=== PATIENT | female | born 1960 | race Caucasian/White ===

== ENCOUNTER → 2019-08-16 10:17 | Outpatient (BNVA) | payer MEDICARE, OTHER, SELFPAY | PROVIDERS: Family Provider Nurse Practitioner Family; Visit Provider Specialist | DX: M25.561 Pain in right knee (principal); M17.11 Unilateral primary osteoarthritis, right knee | CPT/HCPCS: 73560; 73565 ==

== ENCOUNTER 2020-02-03 11:31 | Outpatient (CLI) | payer MEDICARE, OTHER, SELFPAY ==
--- NOTE | 2020-02-03 11:43 | MM_ITS ---
WS: [id number] SCREENING DIGITAL MAMMOGRAM WITH CAD HISTORY: SCREENING COMPARISON: 11/24/2018, 01/25/2015 and 06/30/2012 Bilateral CC and MLO views submitted. Computer aided detection analyzed. Breast composition: There are scattered areas of fibroglandular density. Asymmetry seen on the LEFT CC projection measuring 8 mm in the central breast, just medial to the nip ple line. Not definitely seen on the lateral projection. There is an area of dense asymmetry in the 1 2:00 position LEFT breast which has been on the prior examinations. On the lateral projection there i s slightly more distortion. LEFT breast: Spot compression views (CC and MLO). True ML. Ultrasound to follow if abnormality ton tai. MM/[place] [id number] IMPRESSION: BI-RADS: 0-Incomplete: Need additional imaging evaluation FOLLOW UP: Need Additional Imaging
== END 2020-02-03 11:32 | disposition home or self-care (01) ==
LOC: RADSHAW 11:39
PROVIDERS: PCP Family Medicine; Visit Provider Family Medicine
DX: Z12.31 Encounter for screening mammogram for malignant neoplasm of breast (principal); N64.89 Other specified disorders of breast; M17.11 Unilateral primary osteoarthritis, right knee
CPT/HCPCS: 77067; 87635

== ENCOUNTER → 2020-02-07 17:39 | Outpatient (BNVA) | payer MEDICARE, OTHER, SELFPAY | PROVIDERS: Family Provider Nurse Practitioner Family; Visit Provider Specialist | DX: M25.569 Pain in unspecified knee (principal); M17.11 Unilateral primary osteoarthritis, right knee | CPT/HCPCS: 80053 ==

== ENCOUNTER 2020-02-08 09:50 | Observation (INO) | payer MEDICARE, OTHER, SELFPAY ==
[2020-01-27 14:08] VITALS: BMI 38.9
[2020-01-27 14:43] LABS: Basophils # 0.1 10^3/uL (0.0-0.1); Basophils % 1.4 %; Eosinophils # 0.4 10^3/uL (0.0-0.8); Eosinophils % 5.6 %; Hematocrit 43.3 % (37.0-47.0); Hemoglobin 14.2 g/dL (11.5-15.3); Lymphocytes # 1.5 10^3/uL (0.8-4.8); Mean Corpuscular HGB Conc 32.8 g/dL (30.0-36.0); Mean Corpuscular Hemoglobin 35.2 pg (28.0-34.0); Mean Corpuscular Volume 107.4 fL (81-99); Mean Platelet Volume 10.9 fL (7.4-10.4); Monocytes # 0.3 10^3/uL (0.2-0.9); Monocytes % 4.9 %; Neutrophils # 3.98 10^3/uL (1.8-7.7); Neutrophils % 63.5 %; Nucleated Red Blood Cells % 0 %; Platelet Count 229 10^3/cmm (130-400); Red Blood Count 4.03 10^6/uL (4.1-5.3); Red Cell Distribution Width 14.1 % (12.1-15.1); White Blood Count 6.3 10^3/uL (4.0-10.0)
--- NOTE | 2020-01-27 14:44 | P.ANESASSM_ITS ---
Pre-Anesthetic Assessment Pre-Anesthetic Assessment: Height/Weight: Height 1.57 m Weight 96.615 kg Preop Diagnosis: Degenerative osteoarthritis right knee Proposed Procedure: Operation Date: 02/08/20 07:30 Proposed Procedures p Total Knee Arthroplasty 30282 M17.11(Right) - Lesley Ch MD Familial anesthetic complications: None Social: Social History: No alcohol and No tobacco Exam: Pre-Anes Outpt Exam: alert, oriented x 3, clear to auscultation b ilaterally and regular rate & rhythm Airway: Cervical ROM: WNL MP: 1 Dentition: False Pulmonary: Pulmonary: None reported CV/HEM: CV/HEM: HTN : Comments: angiolipoma of kidney GI: GI: GERD Musc/skel: Comments: methotrexate for psoriatic arthritis Neuropsych: Neuropsych: None reported Anesthetic Plan: Anesthesia: General and Regional (specify below) Risk of > 500 ml blood loss (7ml/kg in children): No PFSH Anesthesia PFSH: Medical History Accelerated essential hypertension Fibromyalgia Primary osteoarthritis of right knee Psoriatic arthropathy Rheumatoid arthritis Surgical History Hx of section Social History Smoking and tobacco status: never smoked Alcohol intake: never Female Reproductive History: Date of last menstrual period: 06/16/99 Data Anesthesia CBC & Chem 7: 01/27/20 14:23 01/27/20 14:23 Other Labs: Laboratory Results - last 48 hr 01/27/20 14:23 WBC 6.3 RBC 4.03 L Hgb 14.2 Hct 43.3 MCV 107.4 H MCH 35.2 H MCHC 32.8 RDW 14.1 Plt Count 229 MPV 10.9 H Neut % (Auto) 63.5 Lymph % (Auto) 24.0 [place] % (Auto) 4.9 Eos % (Auto) 5.6 Baso % (Auto) 1.4 Neut # (Auto) 3.98 Lymph # (Auto) 1.5 [place] # (Auto) 0.3 Eos # (Auto) 0.4 Baso # (Auto) 0.1 Nucleated RBC % (auto) 0 Nucleated RBCs # 0.0 Cardiac Studies: No Data to Display
[2020-01-27 14:46] LABS: Urine Appearance Hazy (CLEAR); Urine Color Yellow (Yellow)
[2020-01-27 14:47] LABS: Add Urine Microscopic? YES; Bilirubin Urine Neg (NEGATIVE); Blood Urine Neg (Negative); Glucose Urine UA Norm (Normal); Ketones Urine Negative (Negative); Leukocyte Esterase Urine 2+ (Negative); Nitrate Urine Negative (Negative); Protein Urine Neg (Negative); Urobilinogen Urine Norm (Negative); pH Urine 6 (5-7)
[2020-01-27 14:56] LABS: Add Urine Culture? Yes; Bacteria Urine 3+; RBC Urine 0-4 /hpf (0-2); WBC Urine 15-25 /hpf (0-5)
[2020-01-27 14:59] LABS: Alanine Aminotransferase 33 U/L (0-33); Albumin Level 4.7 g/dL (3.5-5.2); Alkaline Phosphatase 85 IU/L (35-105); Anion Gap 13.1 (5-19); Aspartate Amino Transferase 33 U/L (0-32); Blood Urea Nitrogen 20 mg/dL (8-23); Calcium 9.5 mg/dL (8.5-10.5); Carbon Dioxide 27 mmol/L (22-29); Chloride 104 mmol/L (98-107); Globulin 2.7 g/dL (1.3-4.6); Glomerular Filtration Rate 45.8 mL/min (90-130); Glucose 99 mg/dL (65-115); Osmolality Calculated 287 mOsm/kg (285-295); Potassium 4.1 mmol/L (3.5-5.1); Sodium 140 mmol/L (136-145); Total Bilirubin 0.7 mg/dL (0.15-1.2); Total Protein 7.4 g/dL (6.6-8.7)
[2020-02-08] VITALS (25 sets, daily range): BP systolic 86–161; BP diastolic 63–94; PULSE 63–82; RESP 14–25; TEMP 36.4–37.5; O2SAT 90–100
--- NOTE | 2020-02-08 06:03 | SUR.PREOP ---
Patient reports she cannot take aspirin nor ibuprofen due to kidney function compromised.
[2020-02-08] MEDS: sodium chloride 0.9% 1,000 ML 30 ML IV (06:05)
--- NOTE | 2020-02-08 06:23 | P.ANESUD_ITS ---
Pre-Anesthetic Update Pre-Anesthetic Assessment: Date of Surgery/Procedure: 02/08/20 Preop Katya gnosis: Degenerative osteoarthritis right knee Proposed Procedure: Operation Date: 02/08/20 07:00 Proposed Procedures p Total Knee Arthroplasty 58474 M17.11(Right) - Lesley Ch MD Any changes to Pre-Anesthetic Assessment?: No Last Intake: Intake NPO > 8 hrs Last Liquid Date 02/07/20 Last Solid Date 02/07/20 Vitals: Temperature 98.5 F 02/08/20 05:50 Temperature Source Temporal Artery S can 02/08/20 05:50 Pulse Rate 66 02/08/20 05:50 Pulse Rhythm 02/08/20 05:51 Pulse Strength 3+ Normal 02/08/20 05:51 Respiratory Rate 18 02/08/20 05:50 Blood Pressure 161/87 02/08/20 05:50 Blood Pressure Laury n 111 02/08/20 05:50 Pulse Oximetry 100 02/08/20 05:50 Oxygen Delivery Me thod 02/08/20 05:51 Exam: Pre-Anes Outpt Exam: alert, oriented x 3, clear to auscultation bilaterally and regular rate & rhythm Cardiac Studies: No Data to Display
[2020-02-08 06:27] LABS: Add Urine Microscopic? NO
--- NOTE | 2020-02-08 06:35 | ANES.PROC ---
Anesthesia Procedures Procedure/Date: 02/08/20 Nerve Block ^: Nerve Block 1: Main Anesthesia: general anesthesia Time Out Performed: Yes Consent: requested by attending/covering physician, from patient, risks and benefits reviewed and patient agrees to proceed Nerve block location: adductor canal (R) Anesthesia monitors applied: pulse oximetry and oxygen Nerve block position: supine Anesthetic Used: ropivicaine 0.5% and with decadron (4 mg) Amount of anesthesia used (mL): 30 Ultrasound used to: recognize landmarks and visualize and ID femerol nerve Nerve Stimulator Used?: No Interscalene/Femoral BLK: 4 stimuplex 21 g needle used for position and inplane approach, visualize local anesthetic spread and no vascular puncture identified Injection: neg aspiration of heme Patient Tolerated Procedure: well and no complications Complications: none
[2020-02-08] MEDS: fentaNYL 50 mcg/mL INJ 2mL 100 MCG IVP (06:36)
[2020-02-08] MEDS: midazolam 1 mg/mL INJ 2 mL 2 MG IVP (06:37)
--- NOTE | 2020-02-08 06:47 | W.PM.OPSUD ---
Surgery/Procedure H&P Update DATE OF PROCEDURE: February 08, 2020 DATE H&P PERFORMED: 01/27/20 H&P UPDATE INFORMATION: I have reviewed H&P completed within last 30 days, I have examined patient prior to procedure, No changes to prior documentation and H&[place] is [place] [facility] date indicated PREOP DIAGNOSIS: Degenerative osteoarthritis right knee PLANNED PROCEDURE: Operation Date: 02/08/20 07:00 Proposed Procedures p Total Knee Arthroplasty 88016 M17.11(Right) - Lesley Ch MD Related Problem List Diagnoses (1) Primary osteoarthritis of right knee:
[2020-02-08 06:49] LABS: Bilirubin Urine Neg (NEGATIVE); Blood Urine Neg (Negative); Glucose Urine UA Norm (Normal); Ketones Urine Negative (Negative); Leukocyte Esterase Urine Negative (Negative); Nitrate Urine Negative (Negative); Protein Urine Neg (Negative); Specific Gravity, Urine 1.015 (1.005-1.030); Urine Appearance Clear (CLEAR); Urine Color Yellow (Yellow); Urobilinogen Urine Norm (Negative); pH Urine 6 (5-7)
--- NOTE | 2020-02-08 08:04 | SUR.OPER ---
Called and notified family of surgical progress.
[2020-02-08] MEDS: ceFAZolin 1,000 mg SDV 2000 MG IRRIGATION (08:33)
[2020-02-08] MEDS: vancomycin 1,000 MG SDV 1000 MG XX (08:52)
--- NOTE | 2020-02-08 09:25 | XRR_ITS ---
PROCEDURE INFORMATION: Exam: XR Right Knee Exam date and time: 02/08/2020 9:58 AM Age: 59 years old Clinical indication: Device placement; Joint replacement hardware; Prior surgery; Surgery date: Post-operative (0-2 days); Additional info: Status post right total knee arthroplasty TECHNIQUE: Imaging protocol: XR Right knee. Views: 1 or 2 views. COMPARISON: CR XR knees AP WB w RT lmt ORTH 08/16/2019 10:22 AM FINDINGS: Bones/joints: Status post total knee replacement. Distal femoral and proximal tibial components appear intact with no obvious complication. There are surgical neelima at the anterior aspect of the knee. Soft tissues: There is a soft tissue edema and/or hematoma and emphysema surrounding the surgical site. XR/XR knee RT 1-2V [id number] IMPRESSION: Status post total knee replacement. Distal femoral and proximal tibial components appear intact . There are soft tissue changes consistent with recent surgery.
--- NOTE | 2020-02-08 09:28 | P.OP_ITS ---
Operative Report Date of procedure: February 08, 2020 Pre-op Diagnosis: Degenerative osteoarthritis right knee Post-op Diagnosis: Degenerative osteoarthritis right knee with flexion contracture Post-op Findings: Large osteophytes, flexion contracture Procedure Done: Right total knee arthroplasty utilizing the following Kingsley implants: A size 3 triathlon posterior stabilized press-fit right femoral component, a size 3 triathlon titanium tibial component, press-fit, a triathlon tibial bearing insert size 3 x 13 mm, and an asymmetric 29 mm x 9 mm patella Specimens removed/disposition: Bone, disposed of Pathology: none sent Surgeon: Lesley Ch Marble Carver: Yaniv Weaver Anesthesia: General (Intubated, ASA tube with supplemental regional block) Estimated blood loss (mL): 25 Tourniquet time (min): 109 Tourniquet time: At 300 mmHg IV fluids (mL): 800 Urine output (mL): 150 Complications: None Findings: Severe degenerative osteoarthritis with large osteophytes medially, flexion contracture, and sculpting of the medial tibial plateau Condition: stable Disposition: PACU (Then to floor for observation and postoperative rehabilitation and pain management.) Brief History: This 59-year-old woman presented with comments of severe right knee pain. She wishes to proceed with right total knee arthroplasty after discussion. She understands the risks and complications which were explained to her. Consents were signed and questions were answered. Procedure: The patient was brought to the operating theater, and after undergoing adequate general intubated anesthesia, ASA 2, with supplemental regional block, the right lower extremity was prepped with Dura-Prep and draped in usual fashion following placement of a tourniquet high on the leg. The leg was then draped free. Following prepping and draping, the leg was exsanguinated, and the tourniquet was elevated to 300 mmHg for a total tourniquet time of 109 minutes. Prior to elevation of the tourniquet, but following exposure of the site of surgery, a surgical pause was performed. At the time of the surgical pause, we confirmed the site and side of surgery. Additionally, we confirmed the appropriate and timely administration of preoperative antibiotics, Ancef 2 g and transexemic acid 1 g each pre and post op. The availability of equipment was confirmed, and the patient's identity was verbalized as well. Following the surgical pause, an incision was made centering over the patella continuing proximally and distally as necessary to allow access to the knee joint. Dissection continued through skin and soft tissues using a scalpel. Hemostasis was obtained using electrocautery. The skin incision was followed by a median parapatellar arthrotomy. The leg was extended and the patella was everted. Following this, the leg was returned to flexed position. The distal femur was exposed and a drill hole was made in this for placement of the distal femoral jig. The distal femoral jig was set at 5? of valgus. The distal femoral cutting block was then placed in appropriate position, and an mark wing was used to confirm an appropriate amount of distal femur would be resected. The distal femoral resection was accomplished with 10 mm of bone being resected dist ally secondary to her flexion contracture. After the distal femoral resection had been accomplished, the femur was measured and it measured a size 3. Medial lateral dimension also measured a size 3. A size 3 femoral cutting block was placed in position, and we were then able to accomplish the anterior, posterior and chamfer cuts. This jig was then removed and the notch guide was placed in position. With the notch guide in appropriate position, the notch was excised including resection of the anterior and posterior cruciate ligaments. This notch was to allow for the posterior stabilized femoral component. At this point, the femur was prepared and attention was directed to the proximal tibia. The posterior knee retractor was placed along with medial and lateral retractors. Further resection of the menisci was accomplished as we had better visualization. A complete meniscectomy was performed both medially and laterally with care being taken to protect the popliteus. Retractors were then placed so that the proximal tibia was well visualized. A drill hole was then made in the tibia for placement of the intramedullary guide. This guide was placed so that approximately 2 mm of bone would be resected from the deficient medial tibial plateau. The intramedullary guide was utilized supplemented with an extramedullary guide to assure appropriate alignment for the proximal tibial resection. The proximal tibial jig was then evaluated, pinned in position, and the proximal tibial resection was accomplished without difficulty. The jig was removed and the proximal tibia was measured. It measured a size 3. A trial reduction was accomplished with an 11 mm insert initially, we then increased to a 13 mm insert following a small medial release. We had good balance to the knee with full extension and excellent varus-valgus stability. The femoral component was placed in position for the trial reduction, and the knee was placed through range of motion. There was excellent stability with excellent varus-valgus alignment with appropriate patellar tracking. This was felt to be the appropriate size insert. There was full extension and flexion without lift off and the rotation of the tibia was marked. Alignment was checked from the hip to the ankle, and this was noted to be appropriate as well. Attention was then directed to the patella. The patella was measured with a caliper. We resected sufficient patella to leave approximately 14 mm of patella remaining. Measurements of the patella then indicated that a size asymmetric 29 mm x 9 mm was the appropriate patellar size. We then placed the jig to drill for the 3 pegs of the press-fit patella, and these drill holes were made without incident. A trial patella was then placed and the knee was placed through range of motion. The patella was noted to track nicely without evidence of subluxation. The femur was prepared for a press-fit femur by drilling 2 holes for the femoral pegs. All trial components were subsequently removed. The tibial tray was then pinned into position, and we broached the tibia for the stem of the tibial component. Subsequently, 4 drill holes were made for placement of the press-fit tibia. This was accomplished without difficulty. Care was taken to assure appropriate rotation of the tibia as well as appropriate position on the proximal tibia. The tibial tray was completely seated on the proximal tibia. Following broaching, the tibial guide was removed, and all surfaces were copiously irrigated. The surfaces were then dried and a bone plug was placed into the distal femur. Exparel was also injected at this point. The Tritanium tibia was impacted into position. The beaded femur was then impacted into position in a cementless fashion. The tibial insert was placed. The patella was pressed into position with a patellar clamp. The knee was irrigated with 20 mL of Betadine and 500 mL of normal saline, and this was allowed to remain in the knee for 3-4 minutes. This was allowed to remain in the knee for 3 full minutes. The knee was then copiously irrigated and suctioned dry. Attention was then directed to closure. Closure was accomplished with 0 Vicryl in the fascial tissues, 2-0 Monocryl was used in the subcutaneous tissues, and the skin was closed with skin neelima followed by Exofin. A sterile dressing was then placed consisting of Telfa, 4 x 4's, ABDs, sterile soft roll, and an Geoff wrap. The patient was returned the Recovery Room in a satisfactory condition. X-rays were obtained there. The patient will be discharged to the floor for postoperative rehabilitation and pain management. She'll be under observation status with plans to discharge home with home health. Associated Problem List Diagnoses (1) Primary osteoarthritis of right knee:
--- NOTE | 2020-02-08 09:47 | SUR.PHASEI ---
0944 PATIENT TO PACU FROM OR. RR EVEN AND UNLABORED. SPO2 97% ON SIMPLE MASK AT 8L. DRESSING TO RIGHT KNEE, CDI. RIGHT PEDAL PULSE, STRONG AND MARKED.
[2020-02-08] MEDS: fentaNYL 50 mcg/mL INJ 2mL IVP (10:06)
--- NOTE | 2020-02-08 10:43 | SUR.PHASEI ---
1021 PATIENT TO MED SURG FROM OR. RR EVEN AND UNLABORED. DRESSING TO RIGHT KNEE, CDI WITH PEDAL PULSE STRONG AND MARKED, FIRST ICE IN PLACE.
[2020-02-08] MEDS: oxyCODONE 5 mg IR Tab/Cap PO ×3 (10:48→18:23)
--- NOTE | 2020-02-08 12:03 | ANE.PACU2 ---
Inpatient post-anesthesia follow up: Airway intact: Yes Vital signs: Temperature 97.6 F Pulse Rate 68 Respiratory Rate 16 Blood Pressure 126/63 Pulse Oximetry 98 Oxygen Delivery Me thod Nasal Cannula Oxygen Flow Rate 3 Fraction of Inspir ed Oxygen Hydration adequate: Yes Nausea and vomiting: No Pain level: 4 Mental status: Baseline Additional Comments: aching knee
[2020-02-08] MEDS: chlorhexidine gluconate 0.12% Btl 473 mL 30 ML MUCOUS MEM ×3 (13:48→21:09)
[2020-02-08] MEDS: calcium carbonate 500 mg Chew Tablet 1000 MG PO (18:23)
[2020-02-08] MEDS: sennosides-docusate Tablet 2 TAB PO (18:23)
[2020-02-08] MEDS: iron polysaccharide complex 150 mg Capsule PO (18:23)
[2020-02-09] VITALS (8 sets, daily range): BP systolic 117–144; BP diastolic 67–76; PULSE 53–113; RESP 14–20; TEMP 36.8–37.1; O2SAT 93–98
[2020-02-09] MEDS: oxyCODONE 5 mg IR Tab/Cap PO ×3 (00:02→12:15)
[2020-02-09 05:06] LABS: Basophils % 0.1 %; Hematocrit 36.5 % (37.0-47.0); Hemoglobin 12.1 g/dL (11.5-15.3); Lymphocytes # 0.8 10^3/uL (0.8-4.8); Lymphocytes % 7.8 %; Mean Corpuscular HGB Conc 33.2 g/dL (30.0-36.0); Mean Corpuscular Hemoglobin 35.8 pg (28.0-34.0); Mean Platelet Volume 10.6 fL (7.4-10.4); Monocytes # 0.4 10^3/uL (0.2-0.9); Neutrophils # 9.35 10^3/uL (1.8-7.7); Neutrophils % 87.6 %; Nucleated Red Blood Cells % 0 %; Platelet Count 166 10^3/cmm (130-400); Red Blood Count 3.38 10^6/uL (4.1-5.3); Red Cell Distribution Width 14.2 % (12.1-15.1); White Blood Count 10.7 10^3/uL (4.0-10.0)
[2020-02-09 05:33] LABS: Anion Gap 12.3 (5-19); Blood Urea Nitrogen 20 mg/dL (8-23); Carbon Dioxide 23 mmol/L (22-29); Chloride 105 mmol/L (98-107); Glomerular Filtration Rate 38.4 mL/min (90-130); Glucose 133 mg/dL (65-115); Osmolality Calculated 280 mOsm/kg (285-295); Potassium 4.3 mmol/L (3.5-5.1); Sodium 136 mmol/L (136-145)
[2020-02-09] MEDS: iron polysaccharide complex 150 mg Capsule PO (07:45)
[2020-02-09] MEDS: sennosides-docusate Tablet 2 TAB PO (08:15)
[2020-02-09] MEDS: allopurinol 300 mg Tablet 150 MG PO (08:16)
[2020-02-09] MEDS: folic acid 1 mg Tablet PO (08:16)
[2020-02-09] MEDS: losartan 50 mg Tablet PO (08:17)
[2020-02-09] MEDS: aspirin 325 mg EC Tablet PO (08:17)
[2020-02-09] MEDS: multivitamin therapeutic Tablet 1 TAB PO (08:17)
[2020-02-09] MEDS: cholecalciferol (vitamin D3) 1,000 unit Tablet 1000 UNIT PO (08:17)
[2020-02-09] MEDS: calcium carbonate 500 mg Chew Tablet 1000 MG PO (08:17)
[2020-02-09] MEDS: chlorhexidine gluconate 0.12% Btl 473 mL 30 ML MUCOUS MEM ×2 (08:18→12:13)
--- NOTE | 2020-02-09 10:57 | PC.NURSE ---
Home Meds Pt had home meds at bedside. Physical therapy informed this nurse that pt stated she was going to take her morning meds. PT instructed pt to wait until the nurse came in. This nurse educated pt not to take any of her home meds and that all home meds needed to be locked in the [facility]. Pt stated she had already used her timolol eye drops. This nurse placed home meds in [facility].
--- NOTE | 2020-02-09 14:15 | PC.CHAP ---
Pastoral Care Encounter/Spiritual Assessment Type of Contact [] Declined driver/merchandiser visit [] Patient/Family/Request visit [] Outpatient visit [] Follow-up visit [] Physician referral [] Code/Alert [X] Routine visit [] Staff referral [] Actively dying [] Patient sleeping [] Family support [] [] Out of room [] Palliative care [] [] Receiving care in room [] Pre-surgical visit [] Trauma [] Long length of stay [] ICU visit [] Other: Relational/Emotional Strength [] Patient feels connected with others/family/visitors/staff [] Distress [] Loneliness/isolation [] Abandonment Spirituality of Patient [] Person of Jahaira [] Attends Lutheran of their Jahaira [] Believes in Prayer [] Reads Bible or Yarsanism materials [] There are Spiritual issues to be addressed Cash Applications Associate Interventions [] Prayer [] Active listening [] Non-anxious presence [] Spiritual/emotional support [] Crisis/trauma care [] Spiritual counseling [] Bereavement support [] Provided bereavement packet [] Provided Bible/devotional materials [] Provided toy/stuffed animal, coloring book to patient or family member [] Provided Communion [] Anointing/[place] [] Salvation [] Completed spiritual assessment [] Other: Impact on Illness or Injury [] Angry [] Fearful [] Anxious [] Often cries [] Exhaustion [] Unable to work [] Unable to attend scientologist [] Unable to walk/stand [] Unable to read [] Unable to drive [] Unable to eat/drink [] Unable to sleep [] Unable to be with family [] Patient intubated [] Other: Summary Time spent with patient
--- NOTE | 2020-02-09 14:29 | P.DS_ITS ---
Discharge Providers Date of Admission: 02/08/20 09:50 Date of Discharge: February 09, 2020 Attending Provider at Admission: Lesley Ch MD Attending Provider at Discharge: Lesley Ch MD Diagnoses at Discharge Discharge Diagnosis (1) Primary osteoarthritis of right knee: Status: Acute Reason for Visit Reason for Visit: Osteoarthritis right knee Hospital Course Hospital Course: The patient was admitted for same-day surgery right total knee arthroplasty. Following the surgery, the patient was brought to the floor under observation so that she could participate with physical therapy, have inpatient pain management, and have her medical issues monitored. The patient did well and had no complications. No consultations were required outside of physical therapy and Occupational Therapy. On the first postoperative day, the patient's wound was benign. She was neurologically intact. She had worked with physical therapy and both therapy and nursing felt she was safe for discharge. Therefore, the patient was to be discharged home with home health and was to follow-up with me in 2 weeks time. Discharge Summary: The patient underwent the following surgical procedure: Right total knee arthroplasty utilizing the following Luigi implants: A size 3 triathlon posterior stabilized press-fit right femoral component, a size 3 triathlon titanium tibial component, press-fit, a triathlon tibial bearing insert size 3 x 13 mm, and an asymmetric 29 mm x 9 mm patella. This was well- tolerated, and on the first postoperative day, the patient was discharged to home. She will follow-up with home health and follow-up with me in approximately 2 weeks time. The patient notes that she is not to take aspirin secondary to renal issues, therefore, she will be given Eliquis for postoperative DVT prophylaxis. She also will not be given Celebrex at the time of discharge. Physical Exam Const: COMMON NORMALS: no acute distress, patient oriented x3 and alert GENERAL APPEARANCE: cooperative and comfortable ORIENTATION/CONSCIOUSNESS: Yes awake HENMT: COMMON NORMALS: normocephalic and atraumatic HEAD & SCALP: normocephalic and atraumatic Eye: GENERAL EYE: appearance normal, both eyes and all related structures Chest: COMMONS NORMALS: normal inspection of the chest Resp: COMMON NORMALS: normal respiratory effort EFFORT & INSPECTION: Yes able to speak in complete sentences and Yes symmetric chest movement Extremity: RIGHT LOWER EXTREMITY: Yes knee joint (Dressing is removed at the time of evaluation.) Right knee: Yes inspection (The wound is benign with no evidence of infection or drainage.), Yes palpation (There is minimal tenderness to palpation.), Yes ROM (Not tested, but the patient is working on this with physical therapy.) and Yes neurovascular exam (Intact distal to the surgical procedure.) Neuro: COMMON NORMALS: patient oriented x3 SENSORIUM/ORIENTATION: Yes alert Psych: COMMON NORMALS: mental status grossly normal APPEARANCE: Yes grossly normal ATTITUDE: Yes calm and Yes engaged ATTENTION/CONCENTRATION: Yes attention grossly intact Skin: COMMON NORMALS: no rashes or lesions noted GENERAL SKIN EXAM: no rashes or lesions noted Urinary Catheter Management^: Figueroa: Cath Placed During This Visit: yes, but has since been removed by the nurse Reason for Continuing Indwelling Catheter: Decision to DC Catheter Urinary Catheter Date of Insertion: 02/08/20 Urinary Catheter Time of Insertion: 07:30 Date Urinary Catheter Removed: 02/09/20 Time Urinary Catheter Discontinued: 06:30 Discharge Data Data Completed and Pending: Completed Studies During Hospitalization Category Date Time Status XR knee RT 1-2V 7 [id number] Routine Exams 02/08/20 09:25 Completed Pending at discharge Category Date Time Status Complete Blood Co unt w/Auto AM LABS Lab 02/10/20 04:00 Ordered Complete Blood Co unt w/Auto AM LABS Lab 02/11/20 04:00 Ordered Labs from last 24 hours 02/09/20 02/09/20 04:54 04:54 WBC 10.7 H RBC 3.38 L Hgb 12.1 Hct 36.5 L MCV 108.0 H MCH 35.8 H MCHC 33.2 RDW 14.2 Plt Count 166 MPV 10.6 H Neut % (Auto) 87.6 Lymph % (Auto) 7.8 Castro % (Auto) 4.0 Eos % (Auto) 0.0 Baso % (Auto) 0.1 Neut # (Auto) 9.35 H Lymph # (Auto) 0.8 Castro # (Auto) 0.4 Eos # (Auto) 0.0 Baso # (Auto) 0.0 Nucleated RBC % (a uto) 0 Nucleated RBCs # 0.0 Sodium 136 Potassium 4.3 Chloride 105 Carbon Dioxide 23 Anion Gap 12.3 BUN 20 Creatinine 1.4 H GFR Calculation 38.4 L Glucose 133 H Calculated Osmolal ity 280 L Calcium 9.0 Vitals: Last Vital Signs Temp 98.3 F 02/09/20 11:26 Pulse 113 H 02/09/20 11:26 Resp 20 H 02/09/20 12:15 BP 144/76 02/09/20 11:26 Pulse Ox 96 02/09/20 08:10 Discharge Plan Discharge Patient Disposition: Home Health Service Condition: Stable Prescriptions: New oxycodone 5 mg Tablet 5 mg PO Q4H PRN (Reason: Moderate Pain) Qty: 30 RF: 0 Eliquis 2.5 mg tablet 2.5 mg PO Q12H Qty: 30 RF: 0 Continued allopurinol 300 mg tablet 150 mg PO DAILY RF: 0 folic acid 1 mg tablet 1 mg PO DAILY RF: 0 furosemide 20 mg tablet 10 mg PO QAM PRN (Reason: swelling) RF: 0 latanoprost 0.005 % drops 1 drop ophthalmic (eye) DAILY RF: 0 losartan 50 mg tablet 50 mg PO DAILY RF: 0 methotrexate sodium 2.5 mg tablet 2.5 mg PO DIRECTED RF: 0 methylprednisolone 4 mg tablet 4 mg PO DAILY PRN (Reason: Pain) RF: 0 omeprazole 20 mg capsule,delayed release(DR/EC) 20 mg PO DAILY PRN (Reason: Acid Reflux) RF: 0 potassium chloride 10 mEq capsule, extended release 10 meq PO DIRECTED RF: 0 timolol maleate 0.5 % drops 1 drop ophthalmic (eye) DAILY RF: 0 ciprofloxacin HCl 250 mg tablet 250 mg PO BID Qty: 20 RF: 0 Discharge Orders: Discharge Order (Routine); Ordered 02/08/20 Ordered By: Lesley Ch Other Ambulatory Orders: DME: Walker (Order) Location: None Selected Ordered By: Lesley Ch Referrals: [facility] [Outside] Lesley Ch MD [Physician] - 02/24/20 11:15 am Discharge Diet: Advance as tolerated and Usual diet Discharge Activity: Increase activity as tolerated, Use walker/crutches as instructed and As per PT/OT instructions Patient Instructions: Oxycodone, Slow Release (By mouth), Apixaban (By mouth), Total Knee Replacement (DC), Osteoarthritis (DC) Activity Restrictions/Additional Instructions: Ice and elevation to right lower extremity. Range of motion and ambulation with physical therapy. Discharge Attestations Time Spent in Discharge Care*: greater than 30 min Specific Discharge Activities: Specific discharge activities: educating patient, discussing with casework specialist/social workers/dc planners, documenting/other paperwork and evaluating patient/reviewing data Quality Metrics Clinical Quality Measures During this hospital stay, did patient experience: None Coding Level of Care Code Acute Diamond Setter Apprentice for Chg Fwd Diagnoses Primary osteoarthritis of right knee M17.11
== END 2020-02-09 16:19 | disposition home health service (06) ==
LOC: MEDSURG 09:51
PROVIDERS: Admitting Provider Specialist; Visit Provider Specialist
PROC: (CPT 27447; principal; 2020-02-08 07:00)
DX: M17.11 Unilateral primary osteoarthritis, right knee (principal); M25.761 Osteophyte, right knee; M24.561 Contracture, right knee; I10 Essential (primary) hypertension; K21.9 Gastro-esophageal reflux disease without esophagitis; L40.50 Arthropathic psoriasis, unspecified; M06.9 Rheumatoid arthritis, unspecified
CPT/HCPCS: 27447; 12345; 36415; 51702; 73560; 80048; 80053; 81001; 81003; 85025; 87086; 87641; 96361; 96365; 96366; 96374; 96375; 97110; 97116; 97161; 97165; 97530; A9281; C1776; C9290; G0378; J0131; J0690; J1100; J2250; J2405; J2704; J2795; J3010; J3370; J3490; J7030

== ENCOUNTER → 2020-03-01 13:25 | Outpatient (BNVA) | payer MEDICARE, OTHER, SELFPAY | PROVIDERS: Visit Provider Specialist | DX: M17.11 Unilateral primary osteoarthritis, right knee (principal); Z96.651 Presence of right artificial knee joint | CPT/HCPCS: 73560; 73565 ==

== ENCOUNTER → 2020-03-29 13:53 | Outpatient (BNVA) | payer MEDICARE, OTHER, SELFPAY | PROVIDERS: Visit Provider Specialist | DX: M17.11 Unilateral primary osteoarthritis, right knee (principal); Z96.651 Presence of right artificial knee joint | CPT/HCPCS: 73562 ==

== ENCOUNTER 2020-05-16 12:22 | Outpatient (CLI) | payer MEDICARE, OTHER, SELFPAY ==
--- NOTE | 2020-05-16 12:45 | US_ITS ---
WS: [id number] ULTRASOUND RENAL TECHNIQUE: Ultrasound examination of both kidneys. CLINICAL INFORMATION: RENAL U/S@[facility] [place] 05/16/20 CK IN 12:30PM APPT TO FOLLOW COMPARISON: None. FINDINGS: Somewhat limited by bowel gas. RIGHT: Right kidney is normal in size and appearance. Echogenicity: Normal. Cortical thickness: 1.4 cm; Normal. Hydronephrosis: None. Perinephric fluid: None. Right kidney measures: 11.4 cm x 4.6 cm x 5.3 cm. LEFT: Difficult difficult to visualize. Two Hypoechoic lesions appear stable since 2019. One measures 1.5 x 1.7 x 0.9 cm with additional lesion measuring 1.7 x 0.8 cm. 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 Left kidney atrophy Echogenicity: Normal. Hydronephrosis: None. Perinephric fluid: None. Left kidney measures: 5.5 cm x 3.2 cm x 3.3 cm. Normal visualized aorta. Cholelithiasis. Lobulated enlarged uterus. US/US renal BI* [id number] IMPRESSION: 1. Limited examination due to bowel gas. 2. No hydronephrosis in either kidney. 3. Hypoechoic lesions left kidney appear stable compared to the prior ultrasou nd in 2019. 4. Cholelithiasis. 5. Lobulated uterus.
== END 2020-05-16 12:23 | disposition home or self-care (01) ==
PROVIDERS: PCP Urology; Visit Provider Urology
DX: N26.1 Atrophy of kidney (terminal) (principal); K80.20 Calculus of gallbladder without cholecystitis without obstruction
CPT/HCPCS: 76770

== ENCOUNTER → 2020-05-29 13:09 | Outpatient (BNVA) | payer MEDICARE, OTHER, SELFPAY | PROVIDERS: PCP Urology; Visit Provider Specialist | DX: M17.11 Unilateral primary osteoarthritis, right knee (principal); Z96.651 Presence of right artificial knee joint | CPT/HCPCS: 73560; 73565 ==

== ENCOUNTER → 2020-11-27 09:24 | Outpatient (BNVA) | payer MEDICARE, OTHER, SELFPAY | PROVIDERS: PCP Urology; Visit Provider Specialist | DX: Z96.651 Presence of right artificial knee joint (principal); M17.11 Unilateral primary osteoarthritis, right knee | CPT/HCPCS: 73560; 73565 ==

== ENCOUNTER 2021-02-21 08:18 | Outpatient (CLI) | payer MEDICARE, OTHER, SELFPAY ==
--- NOTE | 2021-02-21 08:35 | MM_ITS ---
WS: [id number] ADDITIONAL VIEWS LEFT MAMMOGRAM HISTORY: ABNORMAL MAMMOGRAM COMPARISON: 02/03/2020, 11/24/2018 at 01/25/2015 LEFT MAMMOGRAM: Spot compression views and true ML. Asymmetry seen in the medial LEFT breast is no longer apparent. There is very mild asymmetry which is been stable. The dense asymmetry upper-outer quadrant of the LEFT breast has been stable over multip le prior years. MM/[place] [id number] IMPRESSION: BI-RADS: 2-Benign FOLLOW UP: 1 Year Follow-up
== END 2021-02-21 08:19 | disposition home or self-care (01) ==
LOC: RADSHAW 08:24
PROVIDERS: PCP Family Medicine; Visit Provider Family Medicine
DX: R92.8 Other abnormal and inconclusive findings on diagnostic imaging of breast (principal); N64.89 Other specified disorders of breast
CPT/HCPCS: 77065

== ENCOUNTER 2022-03-12 15:25 | Outpatient (CLI) | payer MEDICARE, OTHER, SELFPAY ==
--- NOTE | 2022-03-12 15:32 | MM_ITS ---
WS: [id number] BILATERAL 3D TOMOSYNTHESIS DIGITAL SCREENING MAMMOGRAPHY WITH CAD CLINICAL INFORMATION: SCREENING HISTORY: Screening mammogram. No current complaints. COMPARISON: February 21, 2021 TECHNIQUE: Bilateral CC and MLO views. FINDINGS: Scattered fibroglandular densities bilaterally. Dense breast tissue upper quadrant LEFT breast is unc hanged. Incidental benign calcifications LEFT breast. No suspicious focal mass, asymmetry, calcificat ions, or architectural distortion. No evidence of malignancy. MM/[place] [id number] IMPRESSION: BI-RADS: 2-Benign FOLLOW UP: 1 Year Follow-up Recommend return to annual screening mammography.
== END 2022-03-12 15:26 | disposition home or self-care (01) ==
LOC: RAD 15:25
PROVIDERS: PCP Family Medicine; Visit Provider Family Medicine
DX: Z12.31 Encounter for screening mammogram for malignant neoplasm of breast (principal)
CPT/HCPCS: 77063; 77067

== ENCOUNTER → 2022-11-27 10:06 | Outpatient (BNVA) | payer MEDICARE, OTHER, SELFPAY | PROVIDERS: PCP Family Medicine; Visit Provider Specialist | DX: M17.11 Unilateral primary osteoarthritis, right knee (principal); Z96.651 Presence of right artificial knee joint; Z68.41 Body mass index [BMI] 40.0-44.9, adult | CPT/HCPCS: 73560; 73565; 99213 ==

== ENCOUNTER 2023-04-25 08:31 | Outpatient (CLI) | payer MEDICARE, OTHER, SELFPAY ==
--- NOTE | 2023-04-25 08:30 | MM_ITS ---
WS: [id number] BILATERAL SCREENING DIGITAL TOMOSYNTHESIS MAMMOGRAM WITH CAD HISTORY: SCREENING COMPARISON: 03/12/2022 and 02/21/2021 and 02/03/2020 Bilateral CC and MLO views with tomosynthesis and synthetic mammography submitted. Computer aided det ection analyzed. Breast composition: The breasts are heterogeneously dense, which may obscure small masses. No suspici ous masses, microcalcifications or architectural distortion. Scattered asymmetries and calcifications are stable. IMPRESSION: MM/[place] [id number] BI-RADS: 2-Benign FOLLOW UP: 1 Year Follow-up
== END 2023-04-25 08:32 | disposition home or self-care (01) ==
LOC: MOBLMAM 08:35
PROVIDERS: PCP Registered Nurse; Visit Provider Registered Nurse
DX: Z12.31 Encounter for screening mammogram for malignant neoplasm of breast (principal)
CPT/HCPCS: 77063; 77067

== ENCOUNTER → 2023-10-20 08:30 | Outpatient (BNVA) | payer MEDICARE, OTHER, SELFPAY | PROVIDERS: PCP Registered Nurse; Visit Provider Nurse Practitioner Family | DX: L57.0 Actinic keratosis (principal); L82.0 Inflamed seborrheic keratosis; L70.0 Acne vulgaris; D22.62 Melanocytic nevi of left upper limb, including shoulder; L81.4 Other melanin hyperpigmentation; L57.8 Other skin changes due to chronic exposure to nonionizing radiation; L85.3 Xerosis cutis; L82.1 Other seborrheic keratosis | CPT/HCPCS: 17000; 17110; 99203 ==

== ENCOUNTER → 2024-01-22 09:55 | Outpatient (BNVA) | payer MEDICARE, OTHER, SELFPAY | PROVIDERS: PCP Registered Nurse; Visit Provider Nurse Practitioner Family | DX: L57.0 Actinic keratosis (principal); L82.0 Inflamed seborrheic keratosis; L81.9 Disorder of pigmentation, unspecified; L70.0 Acne vulgaris | CPT/HCPCS: 17000; 17110; 99214 ==

== ENCOUNTER 2024-04-28 14:23 | Outpatient (CLI) | payer MEDICARE, OTHER, SELFPAY ==
--- NOTE | 2024-04-28 14:40 | MM_ITS ---
WS: [id number] Bilateral screening 3D tomosynthesis digital mammogram, 04/28/2024 2:42 PM Clinical Data: SCREENING Comparison: 04/25/2023, 03/12/2022, 02/21/2021, 02/03/2020, 11/24/2018, 01/25/2015, 06/30/2012. Findings: No spiculated masses or clustered calcifications are seen. There are no secondary signs of carcinoma . MM/MM scr BI tomosynthesis [id number] Impression: Negative bilateral mammogram unchanged. Recommend annual screening mammograms. BIRADS: 1 - Negative FOLLOW UP: 1 Year Follow-up DENSITY: The breasts are heterogeneously dense, which may obscure small masses. The CAD cargo checker was used
== END 2024-04-28 14:24 | disposition home or self-care (01) ==
LOC: MOBLMAM 14:39
PROVIDERS: PCP Family Medicine; Visit Provider Family Medicine
DX: Z12.31 Encounter for screening mammogram for malignant neoplasm of breast (principal)
CPT/HCPCS: 77063; 77067

== ENCOUNTER → 2024-05-18 08:40 | Outpatient (BNVA) | payer MEDICARE, OTHER, SELFPAY | PROVIDERS: PCP Family Medicine; Visit Provider Nurse Practitioner Family | DX: L81.9 Disorder of pigmentation, unspecified (principal); L82.1 Other seborrheic keratosis; L57.0 Actinic keratosis | CPT/HCPCS: 17000; 99213 ==

== ENCOUNTER → 2024-11-16 13:26 | Outpatient (BNVA) | payer MEDICARE, OTHER, SELFPAY | PROVIDERS: PCP Family Medicine; Visit Provider Nurse Practitioner Family | DX: L81.4 Other melanin hyperpigmentation (principal); L57.8 Other skin changes due to chronic exposure to nonionizing radiation; X32.XXXA Exposure to sunlight, initial encounter; L57.0 Actinic keratosis; L82.0 Inflamed seborrheic keratosis; L29.89 Other pruritus; R20.9 Unspecified disturbances of skin sensation; R20.8 Other disturbances of skin sensation; L53.8 Other specified erythematous conditions | CPT/HCPCS: 17000; 17110; 99213 ==